=== PATIENT | male | born 1955 | race Hispanic/Latino ===

== ENCOUNTER → 2018-10-15 | Outpatient (CLI) | payer OTHER, MEDICARE | END | disposition home or self-care (01) | LOC: SHCH 12:08 | PROVIDERS: ATTEND Internal Medicine Cardiovascular Disease | DX: R94.31 Abnormal electrocardiogram [ECG] [EKG] (principal) | CPT/HCPCS: 93306 ==

== ENCOUNTER → 2018-10-17 | Outpatient (CLI) | payer OTHER, MEDICARE ==
[~2018-10-17] MED LIST: REGADENOSON 0.4 MG/5 ML PF SYG IVP SCH
== END | disposition home or self-care (01) ==
LOC: SHCH 08:17
PROVIDERS: ATTEND Internal Medicine Cardiovascular Disease
DX: R94.31 Abnormal electrocardiogram [ECG] [EKG] (principal); I31.3 Pericardial effusion (noninflammatory)
CPT/HCPCS: 78452; 93017; 96374; A9500 ×2; J2785

== ENCOUNTER 2018-11-01 06:45 | Day surgery (SDC) | payer OTHER, MEDICARE ==
[2018-10-31 16:07] LABS: BASOPHILS % (AUTO) 0.7 % (0.0-5.0); EOSINOPHILS % (AUTO) 1.9 % (0.0-8.0); HEMATOCRIT 40.6 % (42-54); MEAN CORPUSCULAR HEMOGLOBIN 32.4 pg (27.0-33.0); MEAN CORPUSCULAR HGB CONC 34.4 g/dL (32.0-36.0); MEAN CORPUSCULAR VOLUME 94.3 fL (79-99); MONOCYTES % (AUTO) 8.1 % (3.0-13.0); NEUTROPHILS % (AUTO) 56.3 % (40.0-77.0); PLATELET COUNT (AUTO) 197 K/uL (130-400); RED BLOOD CELL COUNT(AUTO) 4.31 MIL/uL (4.50-6.20); RED CELL DISTRIBUTION WIDTH 13.4 % (11.0-15.5); WHITE BLOOD COUNT (AUTO) 5.5 K/uL (4.8-10.8)
[2018-10-31 16:18] LABS: CREATININE 0.8 mg/dL (0.5-1.5); POTASSIUM 4.2 mmol/L (3.5-5.1)
[2018-10-31 16:57] VITALS: BP 119/71
[~2018-11-01] VITALS: Ht 170.2 cm; Wt 93.0 kg
[2018-11-01] VITALS (17 sets, daily range): BP systolic 104–127; BP diastolic 57–71
[2018-11-01] MEDS: CEFAZOLIN SODIUM 1 GM VIAL IVP SCH ×2 (08:00→09:32)
--- NOTE | 2018-11-01 08:00 | NUR ---
POTENTIAL FOR INFECTION: SHAVED RIGHT KNEE / LEG PER LUIS A PAVON FOLLOWED BY WIPING WITH JEAN PIERRE:2% CHLORHEXIDINE GLUCONATE CLOTH PATIENTS SKIN PREP.
[2018-11-01] MEDS ORDERED: SODIUM CHLORIDE 0.9% 1000ML 1,000 ML IV ONE (08:10)
[2018-11-01] MEDS ORDERED: LIDOCAINE PF 2% 5ML ABBOJECT ONE ×2 (08:58→09:00)
[2018-11-01] MEDS ORDERED: SUCCINYLCHOLINE 200MG/10ML SYR ONE (08:58)
[2018-11-01] MEDS ORDERED: GLYCOPYRROLATE 1 MG/5 ML SYRINGE ONE (08:59)
[2018-11-01] MEDS ORDERED: DEXAMETHASONE SOD PHOSPHATE 10MG/ML 1ML VIAL ONE (08:59)
[2018-11-01] MEDS ORDERED: ONDANSETRON HCL 4 MG/2 ML VIAL ONE ×2 (08:59→10:35)
[2018-11-01] MEDS ORDERED: PROPOFOL 10 MG/ML 20ML VIAL IV ONE (08:59)
[2018-11-01] MEDS ORDERED: NEOSTIGMINE 5MG/5ML SYR IV ONE (08:59)
[2018-11-01] MEDS ORDERED: ROCURONIUM 10MG/1ML SYR 10 MG/ML ML ONE (08:59)
[2018-11-01] MEDS ORDERED: MIDAZOLAM HCL 1 MG/ML 2ML VIAL ONE (08:59)
[2018-11-01] MEDS ORDERED: FENTANYL CITRATE PF 50 MCG/1 ML 2ML VIAL ONE (09:00)
[2018-11-01] MEDS ORDERED: GABA-531 PO (09:03)
[2018-11-01] MEDS ORDERED: ATOR40TA71 PO (09:03)
[2018-11-01] MEDS ORDERED: METF-446 PO (09:03)
[2018-11-01] MEDS ORDERED: INSLAN SQ (09:03)
[2018-11-01] MEDS ORDERED: CYCL30DR OU (09:03)
[2018-11-01] MEDS ORDERED: LEVO75TA10 PO (09:03)
[2018-11-01] MEDS ORDERED: MELA1TAB17 PO (09:03)
[2018-11-01] MEDS ORDERED: CALC-1105 PO (09:03)
[2018-11-01] MEDS ORDERED: IBUP-2070 PO (09:03)
[2018-11-01] MEDS ORDERED: CITA10TA7 PO (09:03)
[2018-11-01] MEDS ORDERED: BIMA12.5OS OU (09:03)
[2018-11-01] MEDS ORDERED: EPHEDRINE SULFATE 50 MG/ML AMPULE ONE (10:23)
[2018-11-01] MEDS ORDERED: KETOROLAC TROMETHAMINE 30MG/ML ONE (10:36)
[2018-11-01] MEDS ORDERED: MEPERIDINE-PF 25 MG/ML SYG ONE ×2 (11:02→11:14)
[2018-11-01] MEDS ORDERED: TYL3 PO (11:15)
[2018-11-01] MEDS ORDERED: CEPH500B PO (11:15)
--- NOTE | 2018-11-01 11:50 | NUR ---
ASSESSMENT RECEIVED PT FROM PACU STAFF HANK TRAINA. PT DOING WELL. DENIES ANY PAIN. DRSG TO RIGHT KNEE DRY AND INTACT. SISTER AT BEDSIDE.
--- NOTE | 2018-11-01 12:25 | NUR ---
DISCHARGE OTRAL AND WRITTEN DISCHARGE INSTRUCTIONS GIVEN TO PT AND PTS FAMILY ALONG WITH PRSCRIPTION. CRUTCHES GIVEN TO PTS SISTER AND DEMONSTRATION GIVEN ON CRUTCH USE AND ICE [PACKS. BOTH VERBALIZED UNDERSTANDING. INSTRUCTED ON IMPORTANCE OF FOLLOWING DR. DUARTE DISCHARGE INSTRUCTIONS.
== END 2018-11-01 12:30 | disposition home or self-care (01) ==
LOC: DAH 06:45
PROVIDERS: ATTEND Orthopaedic Surgery
DX: S83.281A Other tear of lateral meniscus, current injury, right knee, initial encounter (principal); M22.41 Chondromalacia patellae, right knee; E78.5 Hyperlipidemia, unspecified; E03.9 Hypothyroidism, unspecified; E11.9 Type 2 diabetes mellitus without complications; M19.90 Unspecified osteoarthritis, unspecified site; F17.210 Nicotine dependence, cigarettes, uncomplicated; Z79.899 Other long term (current) drug therapy; Z88.2 Allergy status to sulfonamides; Z79.4 Long term (current) use of insulin; Z98.890 Other specified postprocedural states; X58.XXXA Exposure to other specified factors, initial encounter; Y93.89 Activity, other specified; Y92.89 Other specified places as the place of occurrence of the external cause; Y99.8 Other external cause status
CPT/HCPCS: 29881; 36415; 80048; 82948 ×2; 85025; A4606; A4649 ×2; A4930; A6223; J0330; J0690; J1100; J1885; J2001 ×2; J2175 ×2; J2250; J2405 ×2; J2704; J2710; J3010; J3490 ×2; J7030

== ENCOUNTER → 2022-10-19 | Outpatient (CLI) | payer OTHER, MEDICARE ==
[~2022-10-19] MED LIST changes: +ATOR40TA71 PO; +BIMA12.5OS OU; +CALC-1105 PO; +CEPH500B PO; +CITA10TA89 PO; +CYCL30DR OU; +GABA-531 PO; +IBUP-2070 PO; +INSLAN SQ; +LEVO75TA10 PO; +MELA1TAB17 PO; +METF-446 PO; -REGADENOSON 0.4 MG/5 ML PF SYG IVP SCH; +TYL3 PO
[2022-10-19 09:45] LABS: BASOPHILS % (AUTO) 0.7 % (0.0-5.0); EOSINOPHILS % (AUTO) 3.8 % (0.0-8.0); HEMATOCRIT 42.1 % (42-54); LYMPHOCYTES % (AUTO) 32.2 % (21.0-51.0); MEAN CORPUSCULAR HEMOGLOBIN 30.4 pg (27.0-33.0); MEAN CORPUSCULAR HGB CONC 32.8 g/dL (32.0-36.0); MEAN CORPUSCULAR VOLUME 92.7 fL (79-99); MONOCYTES % (AUTO) 8.6 % (3.0-13.0); NEUTROPHILS % (AUTO) 54.3 % (40.0-77.0); PLATELET COUNT (AUTO) 268 K/uL (130-400); RED BLOOD CELL COUNT(AUTO) 4.54 MIL/uL (4.50-6.20); RED CELL DISTRIBUTION WIDTH 12.8 % (11.0-15.5); WHITE BLOOD COUNT (AUTO) 5.6 K/uL (4.8-10.8)
[2022-10-19 10:00] LABS: ALBUMIN 3.7 g/dL (3.5-5.0); CREATININE 0.8 mg/dL (0.5-1.5); POTASSIUM 4.5 mmol/L (3.5-5.1); TOTAL PROTEIN, SERUM 7.7 g/dL (6.0-8.3)
== END | disposition home or self-care (01) ==
LOC: LAB 08:40
PROVIDERS: ATTEND Internal Medicine Gastroenterology
DX: R10.32 Left lower quadrant pain (principal)
CPT/HCPCS: 36415; 80053; 85025

== ENCOUNTER → 2022-10-24 | Outpatient (CLI) | payer OTHER, MEDICARE ==
[~2022-10-24] MED LIST changes: +IOHEXOL 350 MG/ML 100ML INFUS..BTL IV ONE
== END | disposition home or self-care (01) ==
LOC: RAH 07:25
PROVIDERS: ATTEND Internal Medicine Gastroenterology
DX: R14.0 Abdominal distension (gaseous) (principal); R10.32 Left lower quadrant pain
CPT/HCPCS: 74178; Q9967

== ENCOUNTER → 2023-06-26 | Outpatient (CLI) | payer MEDICARE ==
[~2023-06-26] MED LIST changes: -IOHEXOL 350 MG/ML 100ML INFUS..BTL IV ONE
== END | disposition home or self-care (01) ==
LOC: RAH 12:33
PROVIDERS: ATTEND Internal Medicine Cardiovascular Disease
DX: I95.1 Orthostatic hypotension (principal); R42 Dizziness and giddiness; I51.7 Cardiomegaly
CPT/HCPCS: 93306